=== PATIENT | male | born 1990 | race Caucasian/White ===

== ENCOUNTER 2023-10-06 04:24 | Emergency (ER) | payer OTHER ==
[~2023-10-06] VITALS: Ht 165.1 cm; Wt 79.4 kg
[~2023-10-06 04:24] MED LIST: NEURONTIN300 MG PO
[2023-10-06] MEDS ORDERED: ACETAMINOPHEN 500 MG GEL..CAP PO STA (05:56)
[2023-10-06 06:54] LABS: HEMATOCRIT 44.1 % (39.0-48.0); HEMOGLOBIN 15.3 g/dL (13-16.00); MEAN CELL VOLUME 92.4 fL (80.0-100.00); MEAN CORPUSCULAR HGB CONC 34.6 g/dl (32.0-36.0); PLATELET COUNT 140 K/uL (150-450); RED BLOOD COUNT 4.77 M/uL (4.00-6.00); RED CELL DISTRIBUTION WIDTH 13.4 % (11.5-14.5)
[2023-10-06] MEDS ORDERED: DEXAMETHASONE SODIUM PHOSPHATE 4 MG/ML VIAL IM ONE (09:30)
== END 2023-10-06 10:19 | disposition home or self-care (01) ==
LOC: ER 04:24
DX: B34.9 Viral infection, unspecified (principal); Z20.822 Contact with and (suspected) exposure to COVID-19; Z91.013 Allergy to seafood; R42 Dizziness and giddiness